=== PATIENT | male | born 1955 | race African-American/Black ===

== ENCOUNTER 2019-12-31 13:14 | Emergency (ER) | payer MEDICAID ==
[~2019-12-31 13:14] MED LIST: GLU5 PO; HUMULIN R100 U/1 M1 SC; METFORMIN HYD1000 M1 PO; NAP500 PO; PRI20 PO; ZES10 PO; ZOC10 PO
[2019-12-31 13:37] VITALS: BP 160/95
== END 2019-12-31 15:16 | disposition home or self-care (01) ==
LOC: ED 13:14
DX: J02.9 Acute pharyngitis, unspecified (principal)